=== PATIENT | female | born 1995 | race Caucasian/White ===

== ENCOUNTER 2017-08-15 13:59 | Emergency (ER) | payer MEDICAID, OTHER ==
[2017-08-15 14:49] LABS: BILIRUBIN,URINE NEGATIVE (NEGATIVE); GLUCOSE, URINE (UA) NEGATIVE (NEGATIVE); KETONES,URINE (UA) NEGATIVE (NEGATIVE); LEUKOCYTE ESTERASE, URINE NEGATIVE (NEGATIVE); NITRITE,URINE NEGATIVE (NEGATIVE); OCCULT BLOOD,URINE NEGATIVE (NEGATIVE); PROTEIN,URINE NEGATIVE (NEGATIVE); UROBILINOGEN,URINE 0.2 (NORMAL) E.U./dL (NORMAL)
[2017-08-15 14:54] LABS: CLARITY,URINE CLEAR (CLEAR); HCG UR QUAL POSITIVE
--- NOTE | 2017-08-15 15:59 | ED Physician Documentation ---
History of Present Illness - Stated complaint Stated Complaint: FATIGUE/5 WKS PREG - Chief complaint Chief Complaint: General - Additonal information Additional information: hx from pt 22 y/o f LMP 12/5 thinks she might be had some light vag spotting and cramping last night and today no fever no vag dc Review of Systems Constitutional: denies: Fever Cardiac: denies: Chest pain / pressure Respiratory: denies: Dyspnea, Cough GI: reports: Abdominal Pain (pelvic cramping) : reports: Vaginal bleeding, Now EGA (+ HCG in ER). denies: Discharge Neurologic: denies: Generalized weakness Immunocompromised: denies: Immunocompromised PD PAST MEDICAL HISTORY - Past Medical History Past Medical History: No - Past Surgical History Past Surgical History: Yes - Present Medications Home Medications: Ambulatory Orders Medication Instructions Recorded Confirmed Omeprazole [Prilosec] 20 mg PO DAILY #30 capsule. 06/16/15 08/15/17 Ondansetron Odt [Zofran] 4 mg TL Q6H PRN #10 tablet 06/16/15 08/15/17 Sucralfate [Carafate] 1 gm PO ACHS #90 tablet 06/16/15 08/15/17 Vitamin [Trinatal Rx 1] 1 each PO DAILY #30 tablet 08/15/17 - Allergies Allergies/Adverse Reactions: Allergies Allergy/AdvReac Type Severity Reaction Status Date / Time No Known Drug Allergies Allergy Verified 06/16/15 07:14 - Social History Does the pt smoke?: No Smoking Status: Never smoker Does the pt drink ETOH?: No Does the pt have substance abuse?: No - Immunizations Immunizations are current?: Yes - POLST Patient has POLST: No PD ED PE NORMAL - Vitals Vital signs reviewed: Yes - HEENT HEENT: Atraumatic - Cardiac Cardiac: RRR - Respiratory Respiratory: No respiratory distress - Abdomen Abdomen: Soft, Non tender - Female Female : Deferred (no fever or vag dc, cervix closed on TV sono) - Derm Derm: Normal color - Neuro Neuro: Alert and oriented X 3 Results - Vitals Vitals: Vital Signs - 24 hr 08/15/17 08/15/17 08/15/17 14:05 17:00 18:46 Temperature 37.4 C Heart Rate 87 83 87 Respiratory 14 14 15 Rate Blood Pressure 127/67 123/65 122/66 O2 Saturation 100 100 100 Oxygen O2 Source Room air - Labs Labs: Laboratory Tests 08/15/17 08/15/17 08/15/17 14:27 16:12 16:12 HCG, Quant 28998.00 Urine Color YELLOW Urine Clarity CLEAR Urine pH 7.0 Ur Specific [place] 1.020 Urine Protein NEGATIVE Urine Glucose (UA) NEGATIVE Urine Ketones NEGATIVE Urine Occult Blood NEGATIVE Urine Nitrite NEGATIVE Urine Bilirubin NEGATIVE Urine Urobilinogen 0.2 (NORMAL) Ur Leukocyte Esterase NEGATIVE Ur Microscopic Review NOT INDICATED Urine Culture Comments NOT INDICATED Urine HCG, Qual POSITIVE Blood Type A POSITIVE - Rads (name of study) pelvic sono Radiology: See rad report (viable IUP 5+) EDC 912 by sono 04/16 by date, L corpus luteum cyst) PD MEDICAL DECISION MAKING - ED course ED course: + IUP blood type RH + pt updated discussed possible progression to miscarriage will dc Departure - Departure Disposition: 01 Home, Self Care Clinical Impression: Threatened miscarriage Qualifiers: Weeks of gestation: less than 8 weeks Qualified Code(s): Z3A.01 - Less than 8 weeks gestation of Condition: Good Instructions: ED Care Follow-Up: [facility] [Provider Group] (call to schedule follow up within the week) Prescriptions: Vitamin [Trinatal Rx 1] 1 each PO DAILY #30 tablet Comments: You are The baby is in the uterus. You are 5 weeks along and your due date is Apr 17 There is no ectopic But you do have a cyst on your left ovary that might be causing some of the pain. Any time there is pain or bleeding in it is possible that you could be having a miscarriage - there is nothing you or the doctors can do to prevent a miscarriage if that is what is happening. Do recommend no tampons or intercourse until the cramps and bleeding have But the bleeding is light and your cervix looked closed on the ultrasound so that is very reassuring. I have vitamins which you should take every day. You can take tylenol for pain but no other medications without asking the pharmacist or your OB Please follow up with OB for a recheck next week. Return if worse Discharge Date/Time: 08/15/17 19:30
--- NOTE | 2017-08-15 18:43 | Ultrasound Preliminary Report ---
Exam: US OB FIRST TRIMESTER IMPRESSION: 1. Single viable intrauterine at EGA 5 weeks 0 days with RE 04/17/2018 based on mean gesta tional sac diameter, which is concordant with clinical dates. 2. Assigned dating is RE 04/16/2018 based on LMP. 3. Too early to visualize pole. 4. 2.1 x 1.9 x 1.9 cm left corpus luteal cyst. [facility] SITE ID: [id number]
[2017-08-15 18:47] VITALS: BP 122/66
--- NOTE | 2017-08-15 18:48 | Ultrasound Report ---
EXAM: FIRST TRIMESTER OBSTETRIC ULTRASOUND (Less than 11 weeks) EXAM DATE: 08/15/2017 06:26 PM. CLINICAL HISTORY: Pelvic pain and spotting which began today. Beta hCG 91206. LMP: 07/10/2017. COMPARISONS: None. TECHNIQUE: Transabdominal and transvaginal ultrasound examination with static image documentation. CLINICAL DATES: EGA 5 weeks 1 day with RE 04/16/2018 based on LMP/prior ultrasound/other. ASSESSMENT: Gestational Sac: Single intrauterine. Mean gestational sac diameter: 10.4 mm = 5 weeks 0 days, RE 0 04/17/2018. Embryo: Not seen. Cardiac activity: None seen. Yolk sac: 1.5 mm. Amniotic fluid: Not accurately assessed at this gestational age. Early placenta: Not visible at this gestational age. Other: No perigestational fluid collection demonstrated. MATERNAL STRUCTURES: Uterus: Anteverted. Unremarkable. Cervix: Closed. Right Ovary/Adnexa: Unremarkable. The ovary measures 3.9 x 1.6 x 2.2 cm, volume 7.1 cc. Left Ovary/Adnexa: Normal ovarian blood flow. 1.9 x 2.1 x 1.9 cm corpus luteal cyst. 2 extremely tiny echogenic foci within the left ovary consistent with calcifications or cysts with internal protein. Appearance not typical for dermoid. The ovary measures 4.0 x 2.4 x 3.3 cm, volume 16.5 cc. Free Fluid: None. Other: None. IMPRESSION: 1. Single viable intrauterine at EGA 5 weeks 0 days with RE 04/17/2018 based on mean gesta tional sac diameter, which is concordant with clinical dates. 2. Assigned dating is RE 04/16/2018 based on LMP. 3. Too early to visualize pole. 4. A 2.1 x 1.9 x 1.9 cm left corpus luteal cyst. [facility] Referring Provider Line: [phone] SITE ID: [id number]
== END 2017-08-15 19:30 | disposition home or self-care (01) ==
LOC: ED 13:59
DX: O20.0 Threatened abortion (principal); Z3A.01 Less than 8 weeks gestation of pregnancy
CPT/HCPCS: 36415; 76801; 76817; 81001; 81003; 81025; 84702; 86900; 86901; 87086; 99283

== ENCOUNTER 2017-10-03 10:47 | Outpatient (CLI) | payer MEDICAID ==
[2017-10-03 11:23] LABS: BASOPHILS % (AUTO) 0.3 %; EOSINOPHILS # (AUTO) 0.1 10^3/uL (0.0-0.7); EOSINOPHILS % (AUTO) 0.9 %; HGB - HEMOGLOBIN 12.7 g/dL (12.0-16.0); LYMPHOCYTES # (AUTO) 1.7 10^3/uL (1.5-3.5); MEAN CORPUSCULAR HEMOGLOBIN 30.4 pg (27.0-31.0); MEAN CORPUSCULAR HGB CONC 35.1 g/dL (32.0-36.0); MEAN CORPUSCULAR VOLUME 86.4 fL (81.0-99.0); MONOCYTES # (AUTO) 0.3 10^3/uL (0.0-1.0); MONOCYTES % (AUTO) 4.7 %; NEUTROPHILS # (AUTO) 4.8 10^3/uL (1.5-6.6); NEUTROPHILS % (AUTO) 69.1 %; PLT - PLATELET COUNT 135 10^3/uL (130-450); RED CELL DISTRIBUTION WIDTH 13.8 % (12.0-15.0)
[2017-10-03 11:41] LABS: BILIRUBIN,URINE NEGATIVE (NEGATIVE); GLUCOSE, URINE (UA) NEGATIVE (NEGATIVE); KETONES,URINE (UA) TRACE mg/dL (NEGATIVE); LEUKOCYTE ESTERASE, URINE NEGATIVE (NEGATIVE); NITRITE,URINE NEGATIVE (NEGATIVE); OCCULT BLOOD,URINE LARGE (NEGATIVE); PROTEIN,URINE NEGATIVE (NEGATIVE); UROBILINOGEN,URINE 0.2 (NORMAL) E.U./dL (NORMAL)
[2017-10-03 11:46] LABS: CLARITY,URINE CLEAR (CLEAR)
[2017-10-03 12:03] LABS: RBC,URINE 0-5 /HPF (0-5); SQUAMOUS EPITHELIAL CELL,UR RARE Squamous (<= Few)
[2017-10-03 12:04] LABS: BACTERIA,URINE Rare /HPF (None Seen)
[2017-10-04 14:46] LABS: HIV AG/AB 4TH GEN NON-REACTIVE (NON-REACTIVE)
[2017-10-04 15:36] LABS: HEPATITIS C ANTIBODY NON-REACTIVE (NON-REACTIVE)
[2017-10-04 16:01] LABS: HEPATITIS B SURFACE ANTIGEN NON-REACTIVE (NON-REACTIVE)
== END 2017-10-03 10:48 | disposition home or self-care (01) ==
LOC: LAB 10:47
PROVIDERS: ATTEND Nurse Practitioner Obstetrics & Gynecology
DX: Z36.9 Encounter for antenatal screening, unspecified (principal)
CPT/HCPCS: 36415; 81001; 81599; 85025; 86592; 86762; 86803; 86850; 86900; 86901; 87340; 87389

== ENCOUNTER 2017-11-30 07:19 | Outpatient (CLI) | payer MEDICAID ==
--- NOTE | 2017-12-03 17:06 | Ultrasound Report ---
OB ULTRASOUND: 11/30/2017 CLINICAL INDICATION: anatomy. TECHNIQUE: Real-time scanning was performed with agency sales representative static images obtained. LAST MENSTRUAL PERIOD: 07/10/2017 Clinical Age: 20 weeks 3 days US Age: 20 weeks 6 days EFW Hadlock: 379 grams EFW% Hadlock: 66% Heart Rate: 150 bpm EDC: 04/16/2018 US EDC: 04/13/2018 BPD Hadlock: 21 weeks 2 days; Mean mm 50 HC Hadlock: 20 weeks 5 days; Mean mm 184 AC Hadlock: 20 weeks 6 days; Mean mm 157 FL Hadlock: 20 weeks 5 days; Mean mm 34 Presentation: variable Placental Location: posterior Cervical Length: 6.1 cm Amniotic Fluid: TOMY 15.6 cm; subjectively normal; MVP 4.1 cm FINDINGS There is a single viable intrauterine gestation, in variable position. heart rate is 150 BPM. The placenta is posterior, and low lying. Amniotic fluid volume is subjectively normal, with a deepest pocket of 4.1 cm. By size, the fetus measures 20 weeks 6 days ( 20 weeks 3 days by LMP). ANATOMY The following anatomic structures were visualized and appear normal: The intracranial contents, including the ventricles and posterior fossa; the lips and orbits; the spine; the heart, including 4 chamber view and outflow tracts, and diaphragm; the abdominal contents, including the stomach, the bilateral kidneys, and urinary bladder, as well as a normal 3-vessel cord insertion; 4 limbs. No free fluid or adnexal lesion is appreciated. IMPRESSION: SINGLE VIABLE INTRAUTERINE GESTATION, WITH SIZE IN KEEPING WITH LMP DATING. POSTERIOR, LOW LYING PLACENTA. THIS SHOULD BE REEVALUATED IN THE THIRD TRIMESTER. NORMAL ANATOMIC SURVEY. TD: 11/30/2017 12:09 MTDD
== END 2017-11-30 07:20 | disposition home or self-care (01) ==
LOC: DI 07:19
PROVIDERS: ATTEND Registered Nurse
DX: Z34.82 Encounter for supervision of other normal pregnancy, second trimester (principal); O44.42 Low lying placenta NOS or without hemorrhage, second trimester
CPT/HCPCS: 76811

== ENCOUNTER 2018-01-29 08:00 | Outpatient (CLI) | payer MEDICAID ==
[2018-01-29 18:54] LABS: HGB - HEMOGLOBIN 11.9 g/dL (12.0-16.0); MEAN CORPUSCULAR HEMOGLOBIN 32.7 pg (27.0-31.0); MEAN CORPUSCULAR HGB CONC 34.3 g/dL (32.0-36.0); MEAN CORPUSCULAR VOLUME 95.4 fL (81.0-99.0); MEAN PLATELET VOLUME 6.6 fL (7.9-10.8); RED BLOOD COUNT 3.63 10^6/uL (4.20-5.40); RED CELL DISTRIBUTION WIDTH 13.6 % (12.0-15.0); WHITE BLOOD COUNT 7.7 x10^3/uL (4.8-10.8)
== END 2018-01-29 08:01 | disposition home or self-care (01) ==
LOC: LAB.N 08:00
PROVIDERS: ATTEND Nurse Practitioner Obstetrics & Gynecology
DX: Z36.9 Encounter for antenatal screening, unspecified (principal)
CPT/HCPCS: 36415; 82950; 85027; 86850

== ENCOUNTER 2018-02-13 12:20 | Outpatient (CLI) | payer MEDICAID ==
--- NOTE | 2018-02-13 14:30 | Ultrasound Report ---
Procedure Date: 02/13/2018 Accession Number: [id number] / [id number] Procedure: US - OB F/U or Repeat CPT Code: FULL RESULT: EXAM: OB F/U or Repeat DATE: 02/13/2018 1:23 PM CLINICAL HISTORY: ENCTR FOR OTHER SCREENING FUP TECHNIQUE: Real-time scanning was performed with sales representative consultant static images obtained. COMPARISON: 11/30/2017 LAST MENSTRUAL PERIOD: 07/10/2017 Clinical Age: 31 weeks 1 days US Age: 32 weeks 2 days EFW Hadlock: 1850 grams EFW % Hadlock: 48% Heart Rate: 132 bpm EDC: 04/16/2018 US EDC: 04/08/2018 BPD Hadlock: 33 weeks 2 days; Mean mm 83 HC Hadlock: 32 weeks 6 days; Mean mm 297 AC Hadlock: 31 weeks 6 days; Mean mm 278 FL Hadlock: 31 weeks 1 days; Mean mm 60 Presentation: Cephalic Placental Location: Posterior Amniotic Fluid: TOMY 16.5 cm; MVP 5.5 cm FINDINGS: There is a single viable intrauterine gestation. heart rate is 132 BPM. The placenta is posterior. Previously seen low lying placenta has resolved. By size, the fetus measures 32 weeks 2 days (31 weeks 1 day by LMP). IMPRESSION: Resolution of previously seen low-lying placenta. Expected interval growth.
== END 2018-02-13 12:21 | disposition home or self-care (01) ==
LOC: DI 12:20
PROVIDERS: ATTEND Nurse Practitioner Obstetrics & Gynecology
DX: Z36.2 Encounter for other antenatal screening follow-up (principal)
CPT/HCPCS: 76816

== ENCOUNTER 2018-03-13 08:00 | Outpatient (CLI) | payer MEDICAID | END 2018-03-13 08:01 | disposition home or self-care (01) | LOC: LAB.R 08:00 | PROVIDERS: ATTEND Nurse Practitioner Obstetrics & Gynecology | DX: A56.02 Chlamydial vulvovaginitis (principal) | CPT/HCPCS: 87491; 87591 ==

== ENCOUNTER 2018-03-20 12:00 | Outpatient (CLI) | payer MEDICAID | END 2018-03-20 12:01 | disposition home or self-care (01) | LOC: LAB.R 12:00 | PROVIDERS: ATTEND Registered Nurse | DX: Z36.85 Encounter for antenatal screening for Streptococcus B (principal) | CPT/HCPCS: 87081 ==

== ENCOUNTER 2018-04-20 07:03 | Inpatient (IN) | payer MEDICAID ==
[2018-04-20] MEDS ORDERED: SODIUM CHLORIDE FLUSH 0.9% 10 ML SYRINGE IVP PRN (08:40)
[2018-04-20] MEDS ORDERED: PENICILLIN G POTASSIUM 5,000,000 UNIT in SODIUM CHLORIDE 0.9% MINIBAG 100 ML IV ONE (09:00)
[2018-04-20 09:18] LABS: RUPTURE OF MEMBRANES PLUS POSITIVE (NEGATIVE)
[2018-04-20] MEDS: SODIUM CHLORIDE FLUSH 0.9% 10 ML SYRINGE IVP SCH ×5 (10:31→17:16)
[2018-04-20] MEDS: LACTATED RINGERS 1,000 ML IV SCH ×2 (10:33→19:00)
[2018-04-20 10:50] LABS: BASOPHILS % (AUTO) 0.2 %; EOSINOPHILS # (AUTO) 0.1 10^3/uL (0.0-0.7); EOSINOPHILS % (AUTO) 0.6 %; HGB - HEMOGLOBIN 12.9 g/dL (12.0-16.0); LYMPHOCYTES # (AUTO) 1.4 10^3/uL (1.5-3.5); LYMPHOCYTES % (AUTO) 16.6 %; MEAN CORPUSCULAR HEMOGLOBIN 32.1 pg (27.0-31.0); MEAN CORPUSCULAR HGB CONC 35.3 g/dL (32.0-36.0); MEAN CORPUSCULAR VOLUME 90.8 fL (81.0-99.0); MEAN PLATELET VOLUME 7.5 fL (7.9-10.8); MONOCYTES # (AUTO) 0.5 10^3/uL (0.0-1.0); MONOCYTES % (AUTO) 5.7 %; NEUTROPHILS # (AUTO) 6.6 10^3/uL (1.5-6.6); NEUTROPHILS % (AUTO) 76.9 %; PLT - PLATELET COUNT 124 10^3/uL (130-450); RED BLOOD COUNT 4.03 10^6/uL (4.20-5.40); WHITE BLOOD COUNT 8.5 x10^3/uL (4.8-10.8)
[2018-04-20] MEDS ORDERED: fentaNYL 100 MCG/2 ML VIAL IVP PRN (12:35)
[2018-04-20] MEDS ORDERED: OXYTOCIN/SODIUM CHLORIDE 250 ML IV ONE (12:35)
[2018-04-20] MEDS ORDERED: ONDANSETRON 4 MG/2 ML VIAL IVP PRN ×2 (12:35→18:36)
--- NOTE | 2018-04-20 12:35 | HISTORY & PHYSICAL EXAMINATION ---
Admit History - Instructions [place]/Slash: -Left hand click circles element as positive or present. -Right hand click slashes element as negative or not present. - Visit Reason Visit Reason: Membranes rupture (04/20/2018 @ 0500) - : 1 Parity: 0 Premature: 0 Ectopic: 0 : 0 Care: positive: [facility] (beginning @ 12 weeks' EGA, x13 total visits) Complications This : positive: Other (chlamydia identified @ 12 weeks' gestation w/ negative CHRISTINE & negative repeat screening in 3rd trimester; low-lying placenta @ FAS, resolved on re-evaluation @ 32 weeks' EGA; GBS positive) Smoking Status: Former smoker - Mother's Labs Mother's Blood Type: positive: A Mother's RH: positive: Positive GBS: positive: Group B Strep Positive Rubella Status: positive: Immune Meds/Allgy - Home Medications Home Medications: Ambulatory Orders Medication Instructions Recorded Confirmed Omeprazole [Prilosec] 20 mg PO DAILY #30 capsule. 06/16/15 08/15/17 Ondansetron Odt [Zofran] 4 mg TL Q6H PRN #10 tablet 06/16/15 08/15/17 Sucralfate [Carafate] 1 gm PO ACHS #90 tablet 06/16/15 08/15/17 Vitamin [Trinatal Rx 1] 1 each PO DAILY #30 tablet 08/15/17 - Allergies Allergies/Adverse Reactions: Allergies Allergy/AdvReac Type Severity Reaction Status Date / Time No Known Drug Allergies Allergy Verified 06/16/15 07:14 Review of Systems - Constitutional Constitutional: denies: Fatigue, Fever, Chills - Eyes Eyes: denies: Spots in vision, Vision loss, Dipolpia - Cardiovascular Cariovascular: denies: Irregular heart rate, Palpitations, Chest pain, Edema, Lightheadedness - Respiratory Respiratory: denies: Cough, SOB at rest, SOB with exertion - Gastrointestinal Gastrointestinal: denies: Abdominal pain, Abdominal distention, Constipation, Diarrhea, Nausea, Vomiting - Genitourinary Genitourinary: reports: Frequency. denies: Dysuria, Urgency - Musculoskeletal Musculoskeletal: denies: Muscle pain, Back pain, Muscle aches, Stiffness - Integumentary Integumentary: denies: Rash, Pruritis, Lesions - Neurological Neurological: denies: General weakness, Focal weakness, Headache, Dizziness, Numbness - Psychiatric Psychiatric: denies: Depression, Anxiety - All Other Systems All Other Systems: reports: Other (+LOF, no vaginal bleeding, occ contractions, non-painful; +FM) Physical - Abdominal Exam Vital Signs: Temp Pulse Resp BP Pulse Ox 36.8 C 87 19 136/80 H 99 04/20/18 12:02 04/20/18 12:02 04/20/18 12:02 04/20/18 12:02 04/20/18 12:02 T 98.2 po; HR 87bpm; RR 18; BP 136/80; SPO2 100 Contraction Frequency (min/apart): rare Contraction Intensity: positive: Mild Uterine Resting Tone: positive: Soft - Monitoring Heart Rate Baseline: 150 Strip Review: positive: Category I - Presentation Presentation: positive: Vertex - Vaginal Exam Membranes: positive: Membranes ruptured (+ROM plus, CAF x7.75 hours, afebrile) Dilation (in cm): 1 Effacement (%): 50 Station: positive: -2 Cervical Position: positive: Midposition (per RN) - Speculum Exam Speculum Exam Performed: positive: No Findings: positive: Gross leak, Nitrazine, Other (ROM + pos) - Other Notes Labor Progress Note/Additional Text: Farzana Jimenez is a 22 y/o at 40w4d by LMP consistent w/ 1st trimester US who received consistent care t/o her beginning in the first trimester x13 total visits. Her course was complicated by positive chlamydia in the first trimester & bacterial vaginosis, both of which were tx'ed @ that time; CHRISTINE was negative & repeat screening was negative. She had a low- lying placenta noted on her anatomy scan that had resolved by 32 weeks' gestation. She screened positive for GBS. Her course was otherwise uncomplicated & her screening labs were all WNL. She presents today w/ complaint of LOF beginning @ 0500. She has had some irregular uterine contractions that have been primarily nonpainful. She denies vaginal bleeding & reports good FM. She is eager for the labor process to begin. She is hoping for minimal intervention & desires an unmedicated delivery. She is expecting a male & is partnered to Nikko, who is present & supportive. She has additional excellent social support w/ many people present in the room w/ her. PMH: unremarkable PSH: None ObHx: Primiparous GYNHx: +chlamydia this w/ neg CHRISTINE; +BV this , +hx of VVC, NILM pap SOCHx: former smoker, none now; denies tobacco/ETOH/drugs; partnered to Nikko, denies DV Famhx: Noncontributory PE: GEN: AAOx3, NAD WA gravid female HEENT: grossly normocephalic, atraumatic RESP: lungs b/l CTA t/o CARDIAC: RRR nls1s2, no murmur ABD: Gravid, NT; palpable mild contractions, lie longitudinal, presentation cephalic; EFW 8# OB: EFM: BL 150bpm, +accels, no decels, mod deborah; TOCO: occ UCs, infrequent; SVE per RN: /-2 midpos : No lesion, +CAF leaking MS: FROM t/o, no erythema/edema, no deformity SKIN: warm, well-perfused, C/D/I, no lesion, +tattoos, +piercings NEURO: No focal deficit PSYCH: Normal mood & affect, pleasantly conversant Plan for Labor - Plan For Labor I expect patient to be DC'd or transferred within 96 hours.: Yes Plan for Labor: 1. Admit, cbc/clot to hold 2. Begin IV PCN per protocol for GBS prophylaxis 3. Reviewed management options w/ pt & recommendation for IOL, recommend BC misoprostol, reviewed risks/benefits/MOA/se profile/alternatives, full PARQ held, informed consent obtained, will do bc miso 50mcg q 4 hours 4. Reviewed importance of minimizing SVE & performing only for clear clinical indication 5. Reviewed labor physiology, anticipatory guidance 6. Reviewed pain management options, including N2O, pt may utilize self- administered as desired 7. Encouraged ambulation, reviewed optimal maternal positioning 8. Reassess cervical status only w/ clear clinical change & indication 9. Reviewed plan of care w/ pt, family & RN @ bedside; all in agreement, without concerns.
[2018-04-20] MEDS: miSOPROStol 100 MCG TABLET BC SCH ×2 (13:04→18:46)
[2018-04-20] MEDS: PENICILLIN G POTASSIUM 2,500,000 UNIT in SODIUM CHLORIDE 0.9% 100ML 100 ML IV SCH ×3 (14:51→23:19)
[2018-04-20] MEDS ORDERED: fent/BUPIV 2 MCG/0.125% 250 ML EP ONE (17:57)
[2018-04-20] MEDS ORDERED: BUPIVACAINE 0.25% PF 10 ML VIAL ONE (17:58)
--- NOTE | 2018-04-20 18:03 | ANESTHESIA ---
Pre-Anesthesia VS, & Labs - Diagnosis Active Labor - Procedure Vaginal delivery Vital Signs: Temp Pulse Resp BP Pulse Ox 36.8 C 87 19 136/80 H 99 04/20/18 12:02 04/20/18 12:02 04/20/18 12:02 04/20/18 12:02 04/20/18 12:02 Height 5 ft 3 in Weight (kg) 87.09 kg Body Mass Index 25.7 - NPO Other (N/A) - Is Patient ?: Yes - Lab Results Fish Bones: 04/20/18 10:20 Home Medications and Allergies Home Medications: Ambulatory Orders Medication Instructions Recorded Confirmed Vitamin [Trinatal Rx 1] 1 each PO DAILY #30 tablet 08/15/17 Allergies/Adverse Reactions: Allergies Allergy/AdvReac Type Severity Reaction Status Date / Time No Known Drug Allergies Allergy Verified 06/16/15 07:14 Anes History & Medical History - Anesthetic History Family history of Anesthesia Complications: Denies Family history of Malignant Hyperthermia: Denies - Medical History Cardiovascular: reports: None Pulmonary: reports: None Gastrointestinal: reports: None Urinary: reports: None Neuro: reports: None Musculoskeletal: reports: None Endocrine/Autoimmune: reports: None Blood Disorders: reports: None Skin: reports: None Smoking Status: Former smoker Psychosocial: reports: No issues indicated - Surgical History Eyes Ears Nose Throat (EENT): Other (Garber teeth) - Obstetrical History : 1 Parity: 0 Events: positive: None Complications: positive: None, Other (chlamydia identified @ 12 weeks' gestation w/ negative CHRISTINE & negative repeat screening in 3rd trimester; low- lying placenta @ FAS, resolved on re-evaluation @ 32 weeks' EGA; GBS positive) Exam General: Alert, Oriented x3, Cooperative, No acute distress Neck Mobility: Normal Mallampati classification: II Thyromental Distance: 4-6 cm Respiratory: Lungs clear, Normal breath sounds, No respiratory distress, No accessory muscle use Cardiovascular: Regular rate, Normal S1, Normal S2, No murmurs Mental/Cognitive Status: Alert/Oriented X3, Normal for patient Plan Anesthesia Type: Epidural Consent for Procedure(s) Verified and Reviewed: Yes Code Status: Attempt Resuscitation ASA classification: 2-Mild systemic disease Is this case an emergency?: No
[2018-04-20] MEDS ORDERED: NALBUPHINE 10 MG/ML AMP IVP PRN (18:36)
[2018-04-20] MEDS ORDERED: NALOXONE 0.4 MG/ML VIAL IVP PRN (18:36)
[2018-04-20] MEDS ORDERED: ePHEDrine 50 MG/ML VIAL IVP PRN (18:36)
[2018-04-20] MEDS ORDERED: LACTATED RINGERS 500 ML IV ONE (18:36)
[2018-04-20] MEDS ORDERED: fent/BUPIV 2 MCG/0.125% 250 ML EP PRN (18:36)
--- NOTE | 2018-04-20 18:40 | PROVIDER PROGRESS NOTE ---
Labor Progress Note - Uterine Monitoring Uterine Monitoring Mode: positive: External toco Contraction Frequency (min/apart): 2-4 Contraction Intensity: positive: Strong Uterine Resting Tone: positive: Soft - Monitoring Monitor Mode: positive: External ultrasound Heart Rate Baseline: 145 Heart Rate Variability: positive: Moderate (6-25 bmp) Accelerations: positive: Present, 15x15 Decelerations: positive: Early Strip Review: positive: Category I - Vaginal Exam Dilation (in cm): deferred secondary to ROM & pt discomfort, will assess s/p epidural placeme - Labor Progress Note Labor Progress Note/Additional Text: S: Farzana is exquisitely uncomfortable w/ her uterine contractions, requests epidural anesthesia for pain management O: AAOx3, tearful, gravid female VS: T 36.8C; HR 89; BP 145/87; RR 18 EFM BL 145bpm, +accels, no decels, mod deborah TOCO: UCs q2-4 min x50-70 seconds, palpably strong SVE: deferred secondary to pt discomfort to allow epidural placement, ongoing LOF, CAF A: 22 y/o @ 40w4d w/ ROM x13.5 hours, afebrile GBS pos s/p 2 doses IV PCN for prophylaxis Cervical status unfavorable & not in labor on admission, s/p 1 dose 50mcg BC misoprostol, now rula regularly & painfully FHTs cat I Inadequate pain control w/ use of N2O P: 1. Epidural placement now 2. Reassess cervical status s/p epidural placement, once comfortable; administer 2nd dose buccal misoprostol if cervical status persistently unfavorable 3. Continue GBS prophylaxis w/ IV PCN per protocol 4. Encouraged maternal rest & reviewed physiology of labor
[2018-04-21] MEDS ORDERED: OXYTOCIN/SODIUM CHLORIDE 500 ML IV SCH (02:00)
[2018-04-21] MEDS: PENICILLIN G POTASSIUM 2,500,000 UNIT in SODIUM CHLORIDE 0.9% 100ML 100 ML IV SCH ×2 (03:02→07:15)
[2018-04-21] MEDS: LACTATED RINGERS 1,000 ML IV SCH ×2 (03:26→06:21)
[2018-04-21 06:21] LABS: BILIRUBIN,TOTAL 0.8 mg/dL (0.2-1.0); CALCIUM 8.2 mg/dL (8.5-10.3); CREATININE 0.9 mg/dL (0.4-1.0); TOTAL PROTEIN 5.9 g/dL (6.7-8.2)
[2018-04-21] MEDS ORDERED: miSOPROStol 200 MCG TABLET ONE (11:09)
[2018-04-21] MEDS: OXYTOCIN 10 UNIT/ML VIAL ONE ×2 (11:27→11:30)
[2018-04-21] MEDS ORDERED: METHYLERGONOVINE 0.2 MG/ML AMP ONE (11:30)
[2018-04-21] MEDS ORDERED: SODIUM CHLORIDE FLUSH 0.9% 10 ML SYRINGE ONE ×2 (11:38→16:00)
--- NOTE | 2018-04-21 11:55 | DELIVERY NOTE ---
Delivery Note - Labor Labor: positive: Induced by oxytocin, Other (cervical ripening w/ 2 doses buccal misoprostol) - Infant Delivery Method Infant Delivery Method: positive: Spontaneous vaginal delivery - Presentation Presentation: positive: Vertex, Compound (right hand), GILBERTO - right occiput anterior - Nuchal Cord Nuchal Cord: positive: Present (tight x3, wrapped around b/l arms, unable to reduce, delivered head & compound right arm & began disentanglement, then somersaulted through remaining loops) - Anesthetic Anesthetic Type: - Amniotic Fluid Description Amniotic Fluid Description: positive: Clear - Episiotomy Type Episiotomy Type: positive: None - Laceration Laceration: positive: 2nd degree, Sulcus - Suture Suture Type: positive: Vicryl Suture Size: positive: 2-0 - Delivery Outcome Delivery Outcome: positive: Livebirth - [employer]: positive: Stimulated, Warmed, [place] used, Warmer used sex: positive: Male - Cord Cord: positive: 3 vessels - Placenta Placenta: positive: Intact - Estimated Blood Loss Estimated Blood Loss (in cc): 1,000 - Delivery Comments (Free Text/Narrative) Delivery Comments (Free Text/Narrative): Farzana Jimenez is a 22 y/o [id number] who received consistent care t/o her , which was complicated only by +ct in w/ neg CHRISTINE & +GBS at 36-week screening. She presented @ 40w4d w/ complaint of SROM @ 0500. She did not enter spontaneous labor & elected buccal misoprostol for management secondary to unfavorable cervical status. She received 2 total doses & progressed to active labor @ 2200. She received PCN for GBS prophylaxis per protocol & an epidural for pain management. FHTs were monitored electronically t/o & were cat I-II t/o w/ moderate variability. She received Pitocin infusion to a maxiumum infusion rate of 5mU/min, for slow cervical progress from 2200 onward. She progressed to complete dilatation w/ a spontaneous urge to push @ 0940, for a total first stage duration of 11 hours, 40 minutes. She pushed w/ spontaneous urge & direction to viable male in GILBERTO position w/ compound R hand over a 2nd degree perineal laceration @ 1112, for a total 2nd stage duration of 1 hour, [address] Moy Hardy MD, called to attend delivery secondary to repetitive variable decelerations not associated w/ pushing to susan in 70s w/ return to baseline w/ intrauterine resuscitative efforts. Dr. Tyra Armando MD, notified of FHTs but delivery was expeditious @ that point & no further intervention was needed. Tight nuchal cord x3 w/ delivery of head, unable to reduce, R compound arm delivered & cord noted to be wrapped around arm, disentangled from arm, then delivered anterior arm (L arm) & somersaulted infant through remaining loops of cord. Infant floppy @ delivery, FSE removed & cord clamped x2, cut, & infant handed to awaiting fur cutting machine operator for evaluation. 3VC noted. Cord segment obtained for gases & cord blood obtained. IV access lost during 2nd stage. Active management of the 3rd stage delayed secondary to logistics & 10U IM Pitocin administered. Placenta del spont & in bobt, Stevens, @ 1126, for a total 3rd stage duration of 14 minutes. Fundus very boggy & MANJIT floppy, bimanual compression performed & misoprostol 800mcg buccally administered along w/ methergine 0.2mg IM & another 10units IM Pitocin. Fundus firmed w/ compression & uterotonics. Vagina & perineum inspected & R sulcus laceration noted, 2nd degree perineal laceration noted; repaired under epidural anesthesia w/ 2-0 vicryl. Hemostatic & well-approximated. Fundus consistently firm @ U-1. EBL 1000mL. Stat CBC ordered, pending, Pitocin infusion via newly placed intravenous access. Mother & infant stable, apgars 2/7/9, responsive to PPV. Weight pending. Plans to breastfeed.
[2018-04-21 11:57] LABS: BASOPHILS % (AUTO) 0.1 %; LYMPHOCYTES # (AUTO) 1.5 10^3/uL (1.5-3.5); LYMPHOCYTES % (AUTO) 6.1 %; MEAN CORPUSCULAR HEMOGLOBIN 32.1 pg (27.0-31.0); MEAN CORPUSCULAR HGB CONC 33.1 g/dL (32.0-36.0); MEAN PLATELET VOLUME 7.4 fL (7.9-10.8); MONOCYTES # (AUTO) 1.3 10^3/uL (0.0-1.0); NEUTROPHILS # (AUTO) 22.6 10^3/uL (1.5-6.6); NEUTROPHILS % (AUTO) 88.8 %; PLT - PLATELET COUNT 133 10^3/uL (130-450); RED BLOOD COUNT 3.73 10^6/uL (4.20-5.40); RED CELL DISTRIBUTION WIDTH 13.4 % (12.0-15.0); WHITE BLOOD COUNT 25.5 x10^3/uL (4.8-10.8)
[2018-04-21] MEDS ORDERED: OXYTOCIN/SODIUM CHLORIDE 250 ML IV ONE (12:06)
[2018-04-21] MEDS ORDERED: METHYLERGONOVINE 0.2 MG/ML AMP IM PRN (12:06)
[2018-04-21] MEDS ORDERED: MAGNESIUM HYDROXIDE 2,400 MG/30 ML UDC PO PRN (12:06)
[2018-04-21] MEDS ORDERED: HYDROCORTISONE 1% CREAM 28 GM TUBE PR PRN (12:06)
[2018-04-21] MEDS ORDERED: WITCH HAZEL/GLYCERIN 1 EACH MED..PAD TOP PRN (12:06)
[2018-04-21] MEDS ORDERED: OXYTOCIN 10 UNIT/ML VIAL IM ONE (12:06)
[2018-04-21] MEDS ORDERED: LACTATED RINGERS 1,000 ML IV SCH (13:00)
[2018-04-21] MEDS: ACETAMINOPHEN 325 MG TABLET PO PRN ×2 (13:54→20:10)
[2018-04-21] MEDS ORDERED: OXYTOCIN 10 UNIT/ML VIAL IM SCH (14:58)
[2018-04-21] MEDS ORDERED: miSOPROStol 200 MCG TABLET PO SCH (15:01)
[2018-04-21] MEDS ORDERED: OXYTOCIN 10 UNIT/ML VIAL ONE (16:04)
[2018-04-21 18:10] LABS: HGB - HEMOGLOBIN 10.4 g/dL (12.0-16.0); MEAN CORPUSCULAR HEMOGLOBIN 32.1 pg (27.0-31.0); MEAN CORPUSCULAR HGB CONC 34.8 g/dL (32.0-36.0); MEAN CORPUSCULAR VOLUME 92.3 fL (81.0-99.0); MEAN PLATELET VOLUME 7.3 fL (7.9-10.8); RED BLOOD COUNT 3.24 10^6/uL (4.20-5.40); RED CELL DISTRIBUTION WIDTH 13.3 % (12.0-15.0); WHITE BLOOD COUNT 21.7 x10^3/uL (4.8-10.8)
[2018-04-21] MEDS: HYDROCORTISONE/PRAMOXINE 10 GM PR PRN (20:11)
[2018-04-21] MEDS: CELECOXIB 100 MG CAPSULE PO SCH (20:47)
[2018-04-21] MEDS: DOCUSATE SODIUM 100 MG CAPSULE PO SCH (20:48)
[2018-04-22] MEDS: ACETAMINOPHEN 325 MG TABLET PO PRN ×3 (02:02→20:37)
[2018-04-22 06:16] LABS: BASOPHILS % (AUTO) 0.3 %; EOSINOPHILS # (AUTO) 0.1 10^3/uL (0.0-0.7); EOSINOPHILS % (AUTO) 0.9 %; HGB - HEMOGLOBIN 8.5 g/dL (12.0-16.0); LYMPHOCYTES # (AUTO) 1.9 10^3/uL (1.5-3.5); LYMPHOCYTES % (AUTO) 17.8 %; MEAN CORPUSCULAR HEMOGLOBIN 32.2 pg (27.0-31.0); MEAN CORPUSCULAR HGB CONC 34.6 g/dL (32.0-36.0); MEAN PLATELET VOLUME 6.8 fL (7.9-10.8); MONOCYTES # (AUTO) 0.5 10^3/uL (0.0-1.0); NEUTROPHILS # (AUTO) 8.1 10^3/uL (1.5-6.6); PLT - PLATELET COUNT 88 10^3/uL (130-450); RED BLOOD COUNT 2.65 10^6/uL (4.20-5.40); RED CELL DISTRIBUTION WIDTH 13.5 % (12.0-15.0); WHITE BLOOD COUNT 10.7 x10^3/uL (4.8-10.8)
--- NOTE | 2018-04-22 08:07 | PROVIDER PROGRESS NOTE ---
Subjective - Subjective Subjective: S: Bonding well with baby. with some difficulty getting baby to open his mouth wide for a proper latch. Bleeding decreased. Mild perineal discomfort. Pain well controlled with ibuprofen. Anticipating first BM s/p delivery with some anxiety. Mom supportive at the bedside. She denies light headedness, dizziness, visual disturbances, irregular heart rate. O: BP 113/73, T 36.5, HR 73, RR 18, O2 100 Hgb 12.0-->10.4-->8.5 Hct 36.2-->29.9-->24.7 PLT 133-->126-->88 Heart RRR w/o M/G/R, lungs CTAB, abdomen soft and nontender with fundus firm at U-1. Light lochia rubra. Repair intact. Bilateral LE's no edema. A: 22yo -->P1 s/p TSVD of viable male named Amilcar S/p immediate pp hemorrhage 1000mL GBS positive s/p penicillin for GBS prophylaxis P: Continue routine care and medications with special attention paid to support Will review hypovolemic lab results with attending physician for development of further plan of care. Initiate ferrous sulfate PO with repeat CBC 04/22/18 @ 1600 Plan discharge home tomorrow. Objective - Vital Signs/Intake & Output Vital Signs: Vital Signs x48h Temp Pulse Resp BP Pulse Ox 04/22/18 06:20 36.5 C 73 18 113/73 100 04/22/18 00:02 36.8 C 82 16 126/55 L 98 Intake & Output: Intake & Output 04/19/18 04/20/18 04/21/18 04/22/18 23:59 23:59 23:59 23:59 Intake Total 400 2950 Output Total 400 1145 Balance 0 1805 - Lab Results Fish Bones: 04/22/18 06:10 04/21/18 06:00 Other Labs: Lab Results x24hrs 04/22/18 04/21/18 04/21/18 Range/Units 06:10 16:03 11:54 WBC 10.7 21.7 H 25.5 H (4.8-10.8) x10^3/uL RBC 2.65 L 3.24 L 3.73 L (4.20-5.40) 10^6/uL Hgb 8.5 L 10.4 L 12.0 (12.0-16.0) g/dL Hct 24.7 L 29.9 L 36.2 L (37.0-47.0) % MCV 93.0 92.3 97.0 (81.0-99.0) fL MCH 32.2 H 32.1 H 32.1 H (27.0-31.0) pg MCHC 34.6 34.8 33.1 (32.0-36.0) g/dL RDW 13.5 13.3 13.4 (12.0-15.0) % Plt Count 88 L 126 L 133 (130-450) 10^3/uL MPV 6.8 L 7.3 L 7.4 L (7.9-10.8) fL Neut # (Auto) 8.1 H 22.6 H (1.5-6.6) 10^3/uL Lymph # (Auto) 1.9 1.5 (1.5-3.5) 10^3/uL Meigs # (Auto) 0.5 1.3 H (0.0-1.0) 10^3/uL Eos # (Auto) 0.1 0.0 (0.0-0.7) 10^3/uL Baso # (Auto) 0.0 0.0 (0.0-0.1) 10^3/uL Absolute Nucleated RBC 0.00 0.01 x10^3/uL Nucleated RBC % 0.0 0.0 /100WBC Manual Slide Review Indicated WBC Morphology NORMAL APPEARANCE (NORMAL) RBC Morph Micro Appear 1+ POLYCHROMASIA (NORMAL)
[2018-04-22] MEDS: FERROUS SULFATE 325 MG TABLET PO SCH ×2 (08:42→18:35)
[2018-04-22] MEDS: CELECOXIB 100 MG CAPSULE PO SCH ×2 (08:42→21:31)
[2018-04-22] MEDS: DOCUSATE SODIUM 100 MG CAPSULE PO SCH ×2 (08:43→21:32)
[2018-04-22] MEDS: HYDROCORTISONE/PRAMOXINE 10 GM PR PRN (08:59)
[2018-04-22 16:17] LABS: HGB - HEMOGLOBIN 8.3 g/dL (12.0-16.0); MEAN CORPUSCULAR HEMOGLOBIN 31.3 pg (27.0-31.0); MEAN CORPUSCULAR HGB CONC 34.2 g/dL (32.0-36.0); MEAN CORPUSCULAR VOLUME 91.6 fL (81.0-99.0); MEAN PLATELET VOLUME 6.9 fL (7.9-10.8); RED BLOOD COUNT 2.64 10^6/uL (4.20-5.40); RED CELL DISTRIBUTION WIDTH 13.2 % (12.0-15.0); WHITE BLOOD COUNT 11.1 x10^3/uL (4.8-10.8)
[2018-04-22 16:25] LABS: CREATININE 0.6 mg/dL (0.4-1.0)
[2018-04-23] MEDS: FERROUS SULFATE 325 MG TABLET PO SCH (09:02)
[2018-04-23] MEDS: DOCUSATE SODIUM 100 MG CAPSULE PO SCH (09:02)
[2018-04-23] MEDS: CELECOXIB 100 MG CAPSULE PO SCH (09:03)
--- NOTE | 2018-04-23 11:10 | Discharge Plan ---
Discharge Plan Disposition: 01 Home, Self Care Condition: Good Diet: Regular Activity Restrictions: No Restrictions Shower Restrictions: No Driving Restrictions: No No Smoking: If you smoke, Please STOP! Call for help. Follow-up with: Leslie Almanzar CNM, ARNP [Provider Admit Priv/Credential] -
[2018-04-23 11:38] VITALS: BP 122/74
--- NOTE | 2018-04-23 11:42 | PROVIDER PROGRESS NOTE ---
Subjective - Subjective Subjective: FINAL PROGRESS NOTE: S: Bonding well with baby. with little difficulty. Ease of feeding improving with support from RN over night. Met with social work today regarding concerns for her safety and the safety of her baby in regards to FOB and his recent unpredictable behavior. Her mom is supportive at the bedside. Pt desires to be discharged to boarder mom status as baby will remain for another day secondary to jaundice. She denies pain and has taken tylenol for pain management with good control. Bleeding decreased and is light. O: BP 122/74; HR 86; T 37.1, RR 16, O2 100 Hgb 8.3, Hct 24.2, PLT 88-->106. Creatinine 0.6 Heart RRR w/o M/G/R, lungs CTAB, abdomen soft and nontender with fundus firm @ U-2. Bilateral LE's no edema. Perineum intact. A: 22yo -->P1 PPD#2 s/p TSVD of viable male Complex social situation Anemia secondary to hemorrhage P: Reviewed self care and warning s/sx and when to present. Advised continuation of OTC tylenol for pain management. Rx handwritten and provided to patient for initiation of ferrous sulfate 325mg 1 tab PO tid. Plan to repeat CBC @ 3 week visit. Return in 1 week for support visit and then in 3 weeks for routine pp visit. She verbalized understanding and agrees to above plan. She denies further questions or concerns today. Objective - Vital Signs/Intake & Output Vital Signs: Vital Signs x48h Temp Pulse Resp BP Pulse Ox 04/23/18 08:02 37.0 C 82 18 129/78 100 04/23/18 04:30 36.5 C 72 16 107/61 100 Intake & Output: Intake & Output 04/20/18 04/21/18 04/22/18 04/23/18 23:59 23:59 23:59 23:59 Intake Total 400 2950 Output Total 400 1145 Balance 0 1805 - Lab Results Fish Bones: 04/22/18 16:09 04/22/18 16:09 Other Labs: Lab Results x24hrs 04/22/18 04/22/18 Range/Units 16:09 16:09 WBC 11.1 H (4.8-10.8) x10^3/uL RBC 2.64 L (4.20-5.40) 10^6/uL Hgb 8.3 L (12.0-16.0) g/dL Hct 24.2 L (37.0-47.0) % MCV 91.6 (81.0-99.0) fL MCH 31.3 H (27.0-31.0) pg MCHC 34.2 (32.0-36.0) g/dL RDW 13.2 (12.0-15.0) % Plt Count 106 L (130-450) 10^3/uL MPV 6.9 L (7.9-10.8) fL Creatinine 0.6 (0.4-1.0) mg/dL Estimated GFR (MDRD) 124 (>89)
--- NOTE | 2018-04-23 14:13 | Labor Flowsheet ---
Labor Flowsheet Datetime Report Generated by CPN: 04/23/2018 14:13 Datetime: 04/23/2018 07:57 VITAL SIGNS NBP Sys/Hilaria/Mean (mmHg): 129 : 78 : 88 Pulse: 78 LaborFlag: Labor Datetime: 04/22/2018 07:59 SpO2 (%): 100 Datetime: 04/21/2018 16:06 Temperature (C): 36.8 Datetime: 04/21/2018 15:34 Membranes Ruptured Date/Time: 04/20/2018 05:00 Membranes Rupture Method: Spontaneous Datetime: 04/21/2018 11:56 Epidural Procedure Other: Cath Removed; Cath Intact Datetime: 04/21/2018 11:30 Patient Care Comments: Stat CBC ordered per Provider Datetime: 04/21/2018 11:15 Medication Comments: 10mg IM pitocin given Datetime: 04/21/2018 11:11 UTERINE ACTIVITY Monitor Mode: External Frequency (min): 1.5-2 Quality: Strong Duration (sec): 50-70 Pattern: Normal: <= 5 Contractions in 10 Minutes Resting Tone (Palpate): Relaxed ASSESSMENT A Monitor Mode: Internal Scalp Electrode Category: Category II Datetime: 04/21/2018 10:59 Contraction Comments: Pt feeling urge to push with ctxs, ctxs not picking up well on toco FHR Baseline Rate : 140 Variability: Moderate 6-25 bpm Accelerations: 10X10 Datetime: 04/21/2018 10:56 Monitor Interventions for UA: [place] Adjusted Datetime: 04/21/2018 10:45 Patient Position/Activity: Right Lateral Datetime: 04/21/2018 10:17 MEDICATIONS Pitocin (milliunits): Increased to @ (Annotations: 3) Datetime: 04/21/2018 10:08 Communication Comments: 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 Datetime: 04/21/2018 10:00 Decelerations: Early; Late Datetime: 04/21/2018 09:59 Comments: 10L Oxygen Method: Non-Rebreather Datetime: 04/21/2018 09:46 I/O Interventions: [place] Discontinued Datetime: 04/21/2018 09:42 Provider Notified (Name): Milagrosa Datetime: 04/21/2018 09:40 VAGINAL EXAM Dilatation (cm): 10.0 Effacement (%): 100 Station: 2 Exam by: RN Means Vaginal Exam Comments: pt c/o a lot of constant vaginal pressure Datetime: 04/21/2018 08:54 Monitor Interventions for FHR: Ultrasound Adjusted Datetime: 04/21/2018 08:24 Cervix, Consistency: Soft Cervix, Position: Anterior Datetime: 04/21/2018 08:02 Anesthesia Level Check: T10- Umbilicus Datetime: 04/21/2018 07:45 Respirations: 18 FHR Baseline Changes: No Baseline Change Pain Presence: None/Denies Membrane Status: Ruptured Amniotic Fluid Color: Clear Amniotic Fluid Amount: Small Amniotic Fluid Odor: Normal MATERNAL ASSESSMENT Level of Consciousness: Fully Conscious DTR's/Clonus: DTRs 2+; No Clonus Headache: Denies Breath Sounds, Left: Clear and Equal Breath Sounds, Right: Clear and Equal Nausea/Vomiting: Denies RUQ Epigastric Pain: Denies Datetime: 04/21/2018 07:15 COMMUNICATION Communication: Report Given to @ (Annotations: Day Shift: S. Means, RN) Datetime: 04/21/2018 07:10 Antibiotics: Penicillin IV (Units) @ (Annotations: 2,500,000 U) Datetime: 04/21/2018 05:15 Resting Tone IUP (mmHg): 1.5-2.5 Datetime: 04/21/2018 05:07 Temperature Route: Oral Datetime: 04/21/2018 04:51 Actions for Decelerations: Oxygen Applied Datetime: 04/21/2018 04:18 Hygiene: Peripad Changed Datetime: 04/21/2018 03:40 Maternal Comments: mother dozes Datetime: 04/21/2018 03:30 PATIENT CARE IV/Blood Work: IV fluid bolus completed. 500cc of LR infused. Datetime: 04/21/2018 02:14 Oxygen Amount (LPM): 10 Datetime: 04/21/2018 02:00 ANESTHESIA Anesthesia Plans: Epidural Datetime: 04/21/2018 01:55 Pitocin Checklist: At Least 1 Acceleration of 15 bpm x 15 Seconds in 30 Minutes or Adequate Variabi lity; No More than 1 Late Deceleration Occurred in Past 30 Minutes; No More than 2 Variable Decelerat ions > 60 Seconds in Duration and decreasing >60 bpm in 30 minutes; No More than 5 Uterine Contractio ns in 10 Minutes for any 20 Minute Interval; Uterus Palpates Soft between Contractions Datetime: 04/21/2018 01:31 Temperature (F): 100.2 Temperature (C): 37.9 Datetime: 04/21/2018 01:04 Vital Sign Comments: Tympanic temperature taken on right ear (side patient resting on) Datetime: 04/21/2018 00:00 PAIN Pain Scale: 0 Datetime: 04/20/2018 23:50 Vaginal Bleeding: Normal Show Datetime: 04/20/2018 21:45 Notification Reason: Provider made aware of patient c/o rectal pressure, increase in vaginal show, SVE, contraction pattern, mildly elevated BP's, FHR baseline and recurrent late/early declerations wi th moderate variability and overall category II tracing. Provider asks that patient HOB remain sligh tly elevated. Provider also gives orders to hold next dose of scheduled cytotec as she now in active stage of labor. Datetime: 04/20/2018 20:00 Anesthesia Comments: patient comfortable with running epidural Datetime: 04/20/2018 18:57 Pain Type: Cramping Pain Location: Abdomen; Back Pain Coping: Talking Through Contractions Datetime: 04/20/2018 18:46 Cervical Ripening Agents: Cytotec @ Datetime: 04/20/2018 18:30 Epidural Procedure: Completed Datetime: 04/20/2018 18:06 PROCEDURE TIME OUT Procedure Verify: Correct Patient Identity; Correct Side and Site are Marked; Accurate Procedure Co nsent Form; Agreement on Procedure to be Done; Correct Patient Position Epidural Positioning: Sitting Datetime: 04/20/2018 17:15 Antiemetics/Antacids: Zofran (mg) @ 4 Datetime: 04/20/2018 09:04 Stage of : Labor
--- NOTE | 2018-04-23 16:55 | DISCHARGE SUMMARY ---
Physician: FERMIN Hale DATE OF ADMISSION: 04/20/2018 DATE OF DISCHARGE: 04/23/2018 DIAGNOSES ON ADMISSION 1. A 22-year-old G1, P0-0-0 at 40 weeks 4 days intrauterine . 2. Spontaneous rupture of membranes. 3. GBS positive. 4. Chlamydia complicating with test of cure negative and repeat scan in third trimester negative. DIAGNOSES ON DISCHARGE 1. A 22-year-old G1, P1-0-0-1 status post spontaneous vaginal delivery on 04/21/2018. 2. Status post penicillin for GBS prophylaxis per protocol. 3. Second-degree perineal laceration. 4. hemorrhage with estimated blood loss 1000 mL. The patient is asymptomatic and vital signs have been within normal limits. BRIEF HISTORY: She is a patient of [facility] who presented on 04/20/2018 with complaints of spontaneous rupture of membranes at 0500. The patient was found to have intermittent uterine contractions that were not uncomfortable. Cervix was noted to be 1 cm dilated, 50% effaced, and a -2 station and vertex. She was given Misoprostol 50mcg BC q 4 hours for pre- induction cervical ripening and received 2 total doses. She received penicillin for GBS prophylaxis per protocol. She received an epidural for pain management. She received Pitocin infusion to a max infusion rate of 5 milliunits/minute and progressed to deliver a viable male infant at 1112 on 04/21/2018. Tight nuchal cord x3 with delivery of the head, unable to reduce, in addition to a right compound arm delivered and cord noted to be wrapped around the arm x2. Apgars were 2, 7 and 9 at one, five, and ten minutes respectively and the baby was responsive to PPV. Dr. Tyra Armando was notified, but delivery was expeditious prior to her arrival. Dr. Regina Hardy, clinical nursing assistant was present for delivery. Second-degree perineal laceration noted and repaired under epidural anesthesia with 2-0 Vicryl. Active management of the third stage was delayed secondary to loss of IV access. Bimanual compression performed secondary to increased rate of vaginal bleeding. Misoprostol 800 mg BC, Methergine 0.2 mg IM and 2 doses of 10 units of IM Pitocin administered for management. Fundus firmed with compression and uterotonics. She has been doing well in her course. She is ambulating and tolerating a regular diet. She is urinating without difficulty and her lochia is normal. Her pain is well controlled with oral medications. Ferrous sulfate 325 mg p.o. initiated secondary to hemorrhage and hemoglobin decrease. Worsening thrombocytopenia noted following delivery. Repeat CBC ordered and thrombocytopenia improved 12 hours after initial diagnosis. The patient is asymptomatic and normotensive. She will be discharged to [facility] mom status today on day #2 with instructions to take p.o. Tylenol 1000 mg one tablet p.o. q.8 h. for pain management in addition to ferrous sulfate 325 mg one tablet p.o. t.i.d.- prescription was handwritten then provided to patient. She intends to followup with myself at [facility] in 1 week for a support visit and then in 3 weeks for routine visit. She has been given precautions to call if she has any worsening fevers, chills, abdominal pain, increased bleeding, or foul smelling vaginal lochia. We will repeat CBC at 1 week and 3-week visits. Patient verbalized understanding and agrees to above plan. Mother supportive at bedside and verbalized understanding as well. Both the patient and her mother deny further questions or concerns at this time. TD: 04/23/2018 14:06 BRIAN
== END 2018-04-23 12:30 | disposition home or self-care (01) | DRG 774 ==
LOC: WFO 07:03 → FBP 07:04 → WFO 08:39 → EEVIPCON 08:40 → FBP 08:40
PROVIDERS: ADMIT Registered Nurse; ATTEND Nurse Practitioner Obstetrics & Gynecology
PROC: 10E0XZZ Delivery of Products of Conception, External Approach (ICD-10-PCS; principal; 2018-04-21)
PROC: 0KQM0ZZ Repair Perineum Muscle, Open Approach (ICD-10-PCS; 2018-04-21)
PROC: 3E0P7VZ Introduction of Hormone into Female Reproductive, Via Natural or Artificial Opening (ICD-10-PCS; 2018-04-21)
PROC: 4A0HXFZ Measurement of Products of Conception, Cardiac Rhythm, External Approach (ICD-10-PCS; 2018-04-21)
DX: O99.824 Streptococcus B carrier state complicating childbirth (principal); O46.93 Antepartum hemorrhage, unspecified, third trimester; Z37.0 Single live birth; O70.1 Second degree perineal laceration during delivery; D69.6 Thrombocytopenia, unspecified; Z3A.40 40 weeks gestation of pregnancy; O76 Abnormality in fetal heart rate and rhythm complicating labor and delivery; O69.81X0 Labor and delivery complicated by cord around neck, without compression, not applicable or unspecified; D50.0 Iron deficiency anemia secondary to blood loss (chronic); Z60.9 Problem related to social environment, unspecified; O99.820 Streptococcus B carrier state complicating pregnancy
CPT/HCPCS: 36415; 80053; 82565; 84112; 85025; 85027; 88307; 99214

== ENCOUNTER 2019-03-06 | Outpatient (CLI) | payer MEDICAID | END 2019-03-06 23:59 | disposition home or self-care (01) | DX: R30.0 Dysuria (principal) ==

== ENCOUNTER 2020-06-16 06:57 | Outpatient (CLI) | payer MEDICAID ==
--- NOTE | 2020-06-16 15:27 | Ultrasound Report ---
PROCEDURE: Abdomen Complete INDICATIONS: ABD PAIN, BLOATING TECHNIQUE: Real-time scanning was performed of the abdominal and retroperitoneal organs, with image documentatio n. COMPARISON: None. FINDINGS: Liver: Liver is normal in size and increased in echogenicity. Gallbladder: Demonstrates no stones. Wall thickness is within normal limits measuring 1.6 mm. Biliary ducts: Intrahepatic bile ducts are non-dilated. Extrahepatic bile duct caliber measures 4 m m. Normal is 6-7 mm or less in diameter, or 10 mm or less post-cholecystectomy. Pancreas: Visualized portions of the pancreas are sonographically normal. Spleen: Spleen is normal in size and homogeneous in echotexture. Kidneys: Kidneys are normal in size and echotexture. Right kidney measures 10.0 cm long; left kidne y measures 10.8 cm long. No hydronephrosis or nephrolithiasis. No solid masses. Aorta: Visualized aorta is normal in caliber at less than 3 cm. Iliacs: Proximal common iliac arteries are normal in caliber at less than 2.5 cm. IVC: Intrahepatic inferior vena cava is patent. Miscellaneous: No free abdominal fluid. IMPRESSION: 1. Mild hepatic steatosis. Reviewed by: Ximena Guzman MD on 06/16/2020 3:26 PM PST Approved by: Ximena Guzman MD on 06/16/2020 3:26 PM PST Station ID: [id number]
== END 2020-06-16 06:58 | disposition home or self-care (01) ==
LOC: DI 06:57
PROVIDERS: ATTEND Nurse Practitioner Family
DX: R10.9 Unspecified abdominal pain (principal); R14.0 Abdominal distension (gaseous); K76.0 Fatty (change of) liver, not elsewhere classified
CPT/HCPCS: 76700

== ENCOUNTER 2021-03-17 17:01 | Outpatient (CLI) | payer MEDICAID | END 2021-03-17 17:02 | disposition home or self-care (01) | LOC: COV 17:01 | PROVIDERS: ATTEND Family Medicine | DX: Z20.822 Contact with and (suspected) exposure to COVID-19 (principal) ==